=== PATIENT | male | born 1970 ===

== ENCOUNTER → 2018-06-30 | Outpatient (CLI) | payer OTHER | LOC: ZCOL.LAB 17:07 | DX: Z01.812 Encounter for preprocedural laboratory examination (principal); Z86.14 Personal history of Methicillin resistant Staphylococcus aureus infection ==

== ENCOUNTER 2018-07-05 05:19 | Day surgery (SDC) | payer SELFPAY | END 2018-07-05 09:07 | disposition home or self-care (01) | LOC: SDCO 05:19 | DX: E11.621 Type 2 diabetes mellitus with foot ulcer (principal); E11.40 Type 2 diabetes mellitus with diabetic neuropathy, unspecified; L97.422 Non-pressure chronic ulcer of left heel and midfoot with fat layer exposed; Z79.899 Other long term (current) drug therapy; M10.9 Gout, unspecified; Z86.14 Personal history of Methicillin resistant Staphylococcus aureus infection; F17.210 Nicotine dependence, cigarettes, uncomplicated; I10 Essential (primary) hypertension; E03.9 Hypothyroidism, unspecified; R20.2 Paresthesia of skin ==